=== PATIENT | male | born 1960 | race Caucasian/White ===

== ENCOUNTER 2020-01-25 10:53 | Outpatient (RCR) | payer BC ==
[~2020-01-25 10:53] MED LIST: ITRACONAZOLE100 MG PO
== END 2020-02-05 ==
LOC: PT 10:53
PROVIDERS: ATTEND Specialist
DX: S46.011D Strain of muscle(s) and tendon(s) of the rotator cuff of right shoulder, subsequent encounter (principal); M25.511 Pain in right shoulder; M62.81 Muscle weakness (generalized)